=== PATIENT | male | born 1960 | race Caucasian/White ===

== ENCOUNTER → 2016-11-16 | Outpatient (CLI) | payer BC ==
[2016-11-16 11:40] LABS: HEMOGLOBIN 15.6 gm/dl (14.0-17.5); RED BLOOD COUNT 5.14 M/UL (4.20-5.50); WHITE BLOOD COUNT 9.2 K/UL (4.5-11.0)
[2016-11-16 12:17] LABS: BUN/CREATININE RATIO 15 (0-10)
== END ==
LOC: OPSV 11:07
PROVIDERS: Internal Medicine
DX: N41.9 Inflammatory disease of prostate, unspecified (principal)
CPT/HCPCS: 80048; 81001; 85025; 96361; 96365; J0696; J7030

== ENCOUNTER → 2021-06-12 | Outpatient (CLI) | payer OTHER | LOC: KOH-I 12:08 | DX: R06.02 Shortness of breath (principal) | CPT/HCPCS: 71046 ==

== ENCOUNTER → 2021-06-17 | Outpatient (CLI) | payer OTHER | LOC: ECHO 08:42 | DX: R60.0 Localized edema (principal); R00.2 Palpitations; R06.02 Shortness of breath; B94.8 Sequelae of other specified infectious and parasitic diseases; I11.9 Hypertensive heart disease without heart failure; I08.2 Rheumatic disorders of both aortic and tricuspid valves | CPT/HCPCS: ECHO; 93306 ==